=== PATIENT | male | born 1975 | race Two or more races ===

== ENCOUNTER 2020-03-23 09:06 | Emergency (ER) | payer OTHER ==
[~2020-03-23] VITALS: Ht 190.5 cm; Wt 97.5 kg
[2020-03-23] MEDS ORDERED: CIPRO500 MG PO (10:05)
[2020-03-23] MEDS ORDERED: TYLENOL EXTRA500 MG PO (10:19)
[2020-03-23] MEDS ORDERED: PAIN RELIEVER500 MG PO (10:23)
== END 2020-03-23 10:55 | disposition home or self-care (01) ==
LOC: ER 09:06
DX: S91.321A Laceration with foreign body, right foot, initial encounter (principal); W45.8XXA Other foreign body or object entering through skin, initial encounter; Y93.89 Activity, other specified; Y92.89 Other specified places as the place of occurrence of the external cause; Y99.8 Other external cause status